=== PATIENT | female | born 1975 | race Caucasian/White ===

== ENCOUNTER → 2023-09-09 14:30 | Outpatient (CLI) | payer OTHER, SELFPAY ==
--- NOTE | 2023-09-09 | DI.RAD.S_ITS ---
PROCEDURE: XR FOOT RT MIN 3V INDICATIONS: RIGHT HEEL PAIN TECHNIQUE: 4 views of the foot were acquired. COMPARISON: None. FINDINGS: Bones: No fractures or dislocations. No suspicious bony lesions. 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 Plantar calcaneal bone spur. Soft tissues: No tibiotalar joint effusion. Achilles tendon appears normal. IMPRESSION: Plantar calcaneal bone spur. 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 Dictated by: Monse Porter MD, PhD on 09/09/2023 at 15:10 Approved by: Monse Porter MD, PhD on 09/09/2023 at 15:11
== END ==
PROVIDERS: Referring Provider Podiatrist; Visit Provider Podiatrist
DX: M19.071 Primary osteoarthritis, right ankle and foot (principal); M79.671 Pain in right foot; M77.31 Calcaneal spur, right foot
CPT/HCPCS: 73630